=== PATIENT | female | born 1980 | race Caucasian/White ===

== ENCOUNTER → 2024-04-21 | Outpatient (CLI) | payer BC ==
[~2024-04-21] MED LIST: INDERAL 20MG20 MG PO; LEXAPRO20 MG PO; NORCO 325 MG-51 TAB PO; PEPCID 20MG TAB20 MG PO; PROTONIX 40MG T40 MG PO; SEROQUEL 2525 MG/TAB PO; WELLBUTRIN XL300 M1 PO; ZOFRAN ODT4 MG PO; ZYRTEC5 MG PO
== END ==
LOC: MC.RAD 07:29
DX: Z12.31 Encounter for screening mammogram for malignant neoplasm of breast (principal)